=== PATIENT | male | born 1995 | race Caucasian/White ===

== ENCOUNTER 2016-08-27 20:49 | Emergency (ER) | payer OTHER ==
[2016-08-27] MEDS ORDERED: Aspirin Low Dose CHEW TAB* 81 MG PO ONE (23:20)
[2016-08-28 00:39] LABS: Hematocrit 46 % (42-52); Hemoglobin 15.5 g/dl (14.0-18.0); Mean Corpuscular HGB Conc 34 g/dl (31-36); Mean Corpuscular Hemoglobin 27 pg (27-31); Mean Corpuscular Volume 80 fL (80-94); Mean Platelet Volume 10 um3 (7.4-10.4); Red Blood Count 5.76 10^6/ul (4.0-5.4); Red Cell Distribution Width 14 % (10.5-15); White Blood Count 9.1 10^3/ul (3.5-10.8)
[2016-08-28 00:55] LABS: Albumin 4.8 g/dL (3.2-5.2); BUN/Creatinine Ratio 16.3 (8-20); EGFR African American 131.1 (>60); Total Bilirubin 0.4 mg/dL (0.2-1.0); Total Protein 7.8 g/dL (6.4-8.9)
[2016-08-28 00:58] LABS: Potassium 3.8 mmol/L (3.5-5.0)
--- NOTE | 2016-08-28 02:14 | ED ---
HPI Chest Pain - HPI Summary HPI Summary: Patient presents with 2 days of chest discomfort that has come and gone without exertion or rest. He denies nausea, sweating or lightheadedness with symptoms. His pain is a dull sensation that does not radiate. He denies SOB, RODRIGUEZ, throat pain or fevers. 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 His father had an MT in his 20's and is alive today. - History of Current Complaint Chief Complaint: EDChestPainROMI Time Seen by Provider: 08/27/16 23:20 Hx Obtained From: Patient, Family/Dental Hygienist Onset/Duration: Started Hours Ago Timing: Intermittent, Lasting Hours Initial Severity: Mild Current Severity: Mild Pain Intensity: 3 Chest Pain Location: Mid Sternal Chest Pain Radiates: No Character: Dull/Aching Aggravating Factor(s): Nothing Alleviating Factor(s): Nothing Associated Signs and Symptoms: Positive: Chest Pain - Risk Factors Pulmonary Embolism Risk Factors: Negative AMI/ACS Risk Factors: Obesity, Family History - Allergy/Home Medications Allergies/Adverse Reactions: Allergies Allergy/AdvReac Type Severity Reaction Status Date / Time No Known Allergies Allergy Verified 12/22/15 17:45 PMH/Surg Hx/FS Hx/Imm Hx Cardiovascular History: Reports: Hx Hypertension - Surgical History Surgery Procedure, Year, and Place: WISDOM TEETH Infectious Disease History: No Infectious Disease History: Denies: Traveled Outside the in Last 30 Days - Family History Known Family History: Positive: Cardiac Disease, Hypertension - Social History Occupation: Student Lives: With Family Alcohol Use: None Substance Use Type: Reports: None Smoking Status (MU): Never Smoked Tobacco Review of Systems Negative: Fever, Chills Negative: Dental Pain Positive: Chest Pain Negative: Shortness Of Breath Negative: Abdominal Pain, Nausea Negative: Headache All Other Systems Reviewed And Are Negative: Yes Physical Exam Triage Information Reviewed: Yes Vital Signs On Initial Exam: Initial Vitals Temp Pulse Resp BP Pulse Ox 97.1 F 93 20 169/91 100 08/27/16 20:51 08/27/16 20:51 08/27/16 20:51 08/27/16 20:51 08/27/16 20:51 Vital Signs Reviewed: Yes Appearance: Positive: Well-Appearing, No Pain Distress, Obese Skin: Positive: Warm, Skin Color Reflects Adequate Perfusion, Dry, Soft Head/Face: Positive: Normal Head/Face Inspection Eyes: Positive: EOMI, MALLORY, Conjunctiva Clear ENT: Positive: Hearing grossly normal, Pharynx normal Neck: Positive: Supple, Nontender, No Lymphadenopathy Respiratory/Lung Sounds: Positive: Clear to Auscultation, Breath Sounds Present Cardiovascular: Positive: RRR Abdomen Description: Positive: Nontender, Soft. Negative: CVA Tenderness (R), CVA Tenderness (L), Distended, Guarding Bowel Sounds: Positive: Present Musculoskeletal: Positive: Strength/ROM Intact. Negative: Edema Left, Edema Right Neurological: Positive: Sensory/Motor Intact, Alert, Oriented to Person Place, Time, NV Bundle Intact Distally Psychiatric: Positive: Affect/Mood Appropriate AVPU Assessment: Alert - [place] Coma Scale Coma Scale Total: 15 Diagnostics - Vital Signs Vital Signs Temp Pulse Resp BP Pulse Ox 08/27/16 21:58 97.5 F 77 20 154/96 99 08/27/16 20:56 97.1 F 93 20 169/91 100 08/27/16 20:51 97.1 F 93 20 169/91 100 - Laboratory Lab Results: Lab Results 08/27/16 08/27/16 08/27/16 Range/Units 00:20 00:20 00:20 WBC 9.1 (3.5-10.8) 10^3/ul RBC 5.76 H (4.0-5.4) 10^6/ul Hgb 15.5 (14.0-18.0) g/dl Hct 46 (42-52) % MCV 80 (80-94) fL MCH 27 (27-31) pg MCHC 34 (31-36) g/dl RDW 14 (10.5-15) % Plt Count 162 (150-450) 10^3/ul MPV 10 (7.4-10.4) um3 Neut % (Auto) 60.7 (38-83) % Lymph % (Auto) 30.8 (25-47) % [place] % (Auto) 6.7 (1-9) % Eos % (Auto) 0.7 (0-6) % Baso % (Auto) 1.1 (0-2) % Absolute Neuts (auto) 5.5 (1.5-7.7) 10^3/ul Absolute Lymphs (auto) 2.8 (1.0-4.8) 10^3/ul Absolute Monos (auto) 0.6 (0-0.8) 10^3/ul Absolute Eos (auto) 0.1 (0-0.6) 10^3/ul Absolute Basos (auto) 0.1 (0-0.2) 10^3/ul Absolute Nucleated RBC 0.01 10^3/ul Nucleated RBC % 0.1 Sodium 137 (133-145) mmol/L Potassium 3.8 (3.5-5.0) mmol/L Chloride 102 (101-111) mmol/L Carbon Dioxide 26 (22-32) mmol/L Anion Gap 9 (2-11) mmol/L BUN 15 (6-24) mg/dL Creatinine 0.92 (0.67-1.17) mg/dL Est GFR ( Amer) 131.1 (>60) Est GFR (Non-Af Amer) 102.0 (>60) BUN/Creatinine Ratio 16.3 (8-20) Glucose 86 (70-100) mg/dL Lactic Acid 1.0 (0.5-2.0) mmol/L Calcium 10.0 (8.6-10.3) mg/dL Magnesium 2.0 (1.9-2.7) mg/dL Total Bilirubin 0.40 (0.2-1.0) mg/dL AST 32 (13-39) U/L ALT 49 (7-52) U/L Alkaline Phosphatase 91 (34-104) U/L Troponin I 0.00 (<0.04) ng/mL Total Protein 7.8 (6.4-8.9) g/dL Albumin 4.8 (3.2-5.2) g/dL Globulin 3.0 (2-4) g/dL Albumin/Globulin Ratio 1.6 (1-3) Result Diagrams: 08/27/16 00:20 08/27/16 00:20 Lab Statement: Any lab studies that have been ordered have been reviewed, and results considered in the medical decision making process. - Radiology No standard instances Xray Interpretation: No Acute Changes Radiology Interpretation Completed By: Radiologist - EKG No standard instances Cardiac Rate: NL EKG Rhythm: Sinus Rhythm ST Segment: Normal Ectopy: None Re-Evaluation - Re-Evaluation First Eval Re-Evaluation Time: 03:35 Change: Improved Comment: Asymptomatic Chest Pain Course/Dx - Course Course Of Treatment: Patient's case was discussed with Dr. Lee. Patient will await second troponin before possible discharge. If negative, he will be discharged with instructions to follow-up with Jude, who is is PCP for evaluation in the next 48 hours. - Chest Pain Differential Diagnosis/HQI/PQRI: Acute MT, ACS, Angina, CHF, Chest Wall, Pulmonary Edema - Diagnoses Provider Diagnoses: Chest pain - Provider Notifications Discussed Care Of Patient With: Dr. Lee, ED attending. Patient care signed out to Dr. Lee at 0230. Discharge - Discharge Plan Condition: Stable Disposition: HOME Patient Education Materials: Chest Pain (ED) Referrals: JUDE Mera [Medical Doctor] - Eric Catalan MD [Medical Doctor] - 2 Days Additional Instructions: FOLLOW UP WITH CARDIOLOGY, DR. CATALAN, IN THE NEXT 2 DAYS.
[2016-08-28 03:58] VITALS: BP 163/95
--- NOTE | 2016-08-28 07:41 | RAD ---
HISTORY: Chest pain COMPARISONS: None VIEWS:1: Single frontal portable view of the chest at 11:45 PM FINDINGS: LINES AND TUBES: None. CARDIOMEDIASTINAL SILHOUETTE: The cardiomediastinal silhouette is normal for portable technique. PLEURA: The costophrenic angles are sharp. No pleural abnormalities are noted. LUNG PARENCHYMA: The lungs are clear. ABDOMEN: The upper abdomen is clear. There is no subphrenic gas. BONES AND SOFT TISSUES: No bone or soft tissue abnormalities are noted. IMPRESSION: NO ACTIVE CARDIOPULMONARY DISEASE.
--- NOTE | 2016-08-29 21:26 | ED ---
I, Johny Bartlett, scribed for Khanh Lee MD on 08/28/16 at 0336 . Progress - Progress Note Progress Note: Signed out by NISREEN Seymour, pending second troponin. Labs reviewed. Trop is 0.00. Re-Evaluation - Re-Evaluation First Eval Re-Evaluation Time: 03:35 Change: Improved Comment: Asymptomatic Course/Dx - Diagnoses Provider Diagnoses: Chest pain Discharge - Discharge Plan Condition: Stable Disposition: HOME Patient Education Materials: Chest Pain (ED) Referrals: [facility] LEENA Han [Medical Doctor] - Eric Catalan MD [Medical Doctor] - Additional Instructions: FOLLOW UP WITH CARDIOLOGY, DR. CATALAN. The documentation as recorded by the jaquelineibDhruv rodney Billy accurately reflects the service I personally performed and the decisions made by , Khanh Lee MD.
== END 2016-08-28 03:56 | disposition home or self-care (01) ==
LOC: ED 20:49
DX: R07.9 Chest pain, unspecified (principal)
CPT/HCPCS: 36415; 71010; 80053; 83605; 83735; 84484; 85025; 93005; 99283

== ENCOUNTER 2017-09-04 18:58 | Emergency (ER) | payer OTHER ==
[2017-09-04 19:12] VITALS: BP 162/88
--- NOTE | 2017-09-04 20:26 | UC ---
Cardiac HPI - HPI Summary HPI Summary: Patient presents complaining of chest pain that started several hours prior to arrival while he was cleaning his house. Upon further discussion patient states that it actually feels like it is more left side and back pain than it is chest pain. Pain is worse when he moves his upper body. He denies nausea, shortness of breath, sweats, dizziness. - History of Current Complaint Chief Complaint: UCChestPain Stated Complaint: CHEST AND BACK PAIN Time Seen by Provider: 09/04/17 19:02 Hx Obtained From: Patient, Family/Special Police - SERINA Onset/Duration: Sudden Onset, Lasting Hours, Still Present Timing: Constant Initial Severity: Moderate Current Severity: Moderate Pain Intensity: 8 Chest Pain Location: Left Lateral Character: Sharp/Stabbing Aggravating Factor(s): Movement Alleviating Factor(s): Rest Associated Signs & Symptoms: Positive: Chest Pain, Back Pain. Negative: Vision Changes, Weakness, Dizziness, SOB, Fever, Nausea/Vomiting, Palpitations - Allergy/Home Medications Allergies/Adverse Reactions: Allergies Allergy/AdvReac Type Severity Reaction Status Date / Time No Known Allergies Allergy Verified 09/04/17 19:13 PMH/Surg Hx/FS Hx/Imm Hx Cardiovascular History: Hypertension - Surgical History Surgical History: Yes Surgery Procedure, Year, and Place: WISDOM TEETH - Family History Known Family History: Positive: Cardiac Disease, Hypertension - Social History Alcohol Use: Occasionally Substance Use Type: None Smoking Status (MU): Never Smoked Tobacco Review of Systems Constitutional: Negative Eyes: Negative ENT: Negative Respiratory: Negative Cardiovascular: Chest Pain Gastrointestinal: Negative Musculoskeletal: Myalgia All Other Systems Reviewed And Are Negative: Yes Physical Exam Triage Information Reviewed: Yes Appearance: Well-Appearing, No Pain Distress, Well-Nourished Vital Signs: Initial Vital Signs Temp 98.2 F 09/04/17 19:05 Pulse 75 09/04/17 19:05 Resp 16 09/04/17 19:05 BP 162/88 09/04/17 19:05 Pulse Ox 97 09/04/17 19:05 Vital Signs Reviewed: Yes Eyes: Positive: Conjunctiva Clear ENT: Positive: Hearing grossly normal, Pharynx normal, TMs normal Neck: Positive: Supple, Nontender, No Lymphadenopathy Respiratory Exam: Normal Cardiovascular Exam: Normal Abdomen Description: Positive: Nontender, Soft. Negative: CVA Tenderness (R), CVA Tenderness (L), Distended, Guarding Musculoskeletal: Positive: No Edema Neurological: Positive: Alert Psychological: Positive: Normal Response To Family, Age Appropriate Behavior Skin: Negative: rashes Diagnostics - EKG Cardiac Rate: NL - 75 BPM Cardiac Rhythm: Sinus: Normal Ectopy: None ST Segment: Normal - Assessment/Plan Course Of Treatment: Given patient's family history of early cardiac disease offered transport to [place] [facility] [place]. Patient declines in favor of treating conservatively for muscle strain with NSAID and muscle relaxer. Advised to go to the ED without fail if his symptoms worsen. - Clinical Impression Provider Diagnoses: MUSCLE STRAIN Discharge - Sign-Out/Discharge Documenting (check all that apply): Discharge - Discharge Plan Condition: Stable Disposition: HOME Prescriptions: Cyclobenzaprine TAB* [Flexeril TAB*] 10 mg PO BID PRN #30 tab PRN Reason: Pain Naproxen [Naproxen EC] 500 mg PO BID PRN #30 tab PRN Reason: Pain Patient Education Materials: Muscle Strain (ED) Referrals: No Primary Care Phys,NOPCP [Primary Care Provider] - Additional Instructions: LOW SUSPICION FOR CARDIAC CAUSES OF YOUR SYMPTOMS. PRESENTATION MORE CONSISTENT WITH MUSCLE STRAIN. REST, STRETCH AND TAKE NAPROSYN AND FLEXERIL NEEDED. GO TO ER WITHOUT FAIL IF YOU DEVELOP WORSENING SHORTNESS OF BREATH, CHEST PAIN, NAUSEA, SWEATS, DIZZINESS OR ANY OTHER CONCERNING SYMPTOMS. BE SURE TO ESTABLISH WITH A PCP WHEN YOU MOVE IN 2 WEEKS. GIVEN YOUR FAMILY HISTORY I RECOMMEND YOU DISCUSS ROUTINE EVALUATION AND CARDIAC WORK-UP. - Billing Disposition and Condition Condition: STABLE Disposition: HOME
== END 2017-09-04 20:20 | disposition home or self-care (01) ==
LOC: UCEAST 18:58
DX: S29.011A Strain of muscle and tendon of front wall of thorax, initial encounter (principal); X50.9XXA Other and unspecified overexertion or strenuous movements or postures, initial encounter; Y93.E9 Activity, other interior property and clothing maintenance; Y92.009 Unspecified place in unspecified non-institutional (private) residence as the place of occurrence of the external cause; M54.9 Dorsalgia, unspecified; M79.1 Myalgia; I10 Essential (primary) hypertension
CPT/HCPCS: 93005; 99212; G0463

== ENCOUNTER 2017-09-08 16:27 | Emergency (ER) | payer OTHER ==
--- NOTE | 2017-09-08 18:04 | ED ---
Back Pain - HPI Summary HPI Summary: Please of sudden onset left upper back pain S/P standing up after cleaning house last Saturday, with mild SOB associated with pain. Patient went to urgent care saturday, diagnosed with muscle strain, given a prescription for Flexeril and naproxen. Patient states pain is improved but is still persistent. Pain intermittent, sharp, worse with movement, flexion and extension of back. Denies fever, cough, sore throat, CP, N/V/D, abdomen pain, change in urinary BM. Denies personal cardiac history, positive family cardiac history. Med history is none. - History of Current Complaint Chief Complaint: EDBackInjuryPain Stated Complaint: BACK PAIN Time Seen by Provider: 09/08/17 17:37 Hx Obtained From: Patient Onset/Duration: Sudden Onset Onset/Duration: Started Days Ago Timing: Intermittent Back Pain Location: Is Discrete @ Severity Initially: Moderate Severity Currently: Mild Pain Intensity: 4 Pain Scale Used: 0-10 Numeric Character: Sharp Aggravating Symptom(s): Movement Alleviating Symptom(s): Rest, Position, OTC Meds Associated Signs And Symptoms: Positive: Negative - Risk Factors AAA Risk Factors: Negative TAD Risk Factors: Negative Cauda [place] Risk Factors: Negative Epidural Abscess Risk Factors: Negative - Allergies/Home Medications Allergies/Adverse Reactions: Allergies Allergy/AdvReac Type Severity Reaction Status Date / Time No Known Allergies Allergy Verified 09/08/17 16:47 PMH/Surg Hx/FS Hx/Imm Hx Cardiovascular History: Reports: Hx Hypertension - Surgical History Surgery Procedure, Year, and Place: WISDOM TEETH Infectious Disease History: No Infectious Disease History: Denies: Traveled Outside the [place] in Last 30 Days - Family History Known Family History: Positive: Cardiac Disease, Hypertension - Social History Alcohol Use: Occasionally Substance Use Type: Reports: None Smoking Status (MU): Never Smoked Tobacco Review of Systems Constitutional: Negative Eyes: Negative ENT: Negative Cardiovascular: Negative Positive: Shortness Of Breath Gastrointestinal: Negative Genitourinary: Negative Musculoskeletal: Negative Skin: Negative Neurological: Negative Psychological: Normal All Other Systems Reviewed And Are Negative: Yes Physical Exam - Summary Physical Exam Summary: Patient nontender to palpation in paraspinal and upper back muscles. No increase in pain with movement of left shoulder or arm. No indication of trauma to left upper back. Triage Information Reviewed: Yes Vital Signs On Initial Exam: Initial Vitals Temp Pulse Resp BP Pulse Ox 98 F 104 16 178/99 98 09/08/17 16:47 09/08/17 16:47 09/08/17 16:47 09/08/17 16:47 09/08/17 16:47 Vital Signs Reviewed: Yes Appearance: Positive: Well-Appearing Skin: Positive: Warm Head/Face: Positive: Normal Head/Face Inspection Eyes: Positive: Normal Neck: Positive: Supple Respiratory/Lung Sounds: Positive: Clear to Auscultation Cardiovascular: Positive: Normal Abdomen Description: Positive: Nontender Musculoskeletal: Positive: Normal Neurological: Positive: Normal Psychiatric: Positive: Normal AVPU Assessment: Alert - [place] Coma Scale Best Eye Response: 4 - Spontaneous Best Motor Response: 6 - Obeys Commands Best Verbal Response: 5 - Oriented Coma Scale Total: 15 Diagnostics - Vital Signs Vital Signs Temp Pulse Resp BP Pulse Ox 09/08/17 16:47 98 F 104 16 178/99 98 - Laboratory Lab Statement: Any lab studies that have been ordered have been reviewed, and results considered in the medical decision making process. - Radiology chesdt xray Xray Interpretation: No Acute Changes Radiology Interpretation Completed By: Radiologist Back Pain Course/Dx - Diagnoses Provider Diagnoses: Costochondritis, acute Discharge - Sign-Out/Discharge Documenting (check all that apply): Discharge - Discharge Plan Condition: Stable Disposition: HOME Patient Education Materials: Costochondritis (ED) Referrals: No Primary Care Phys,NOPCP [Primary Care Provider] - - Billing Disposition and Condition Condition: STABLE Disposition: HOME
--- NOTE | 2017-09-08 19:16 | RAD ---
Indication: Back pain. 2 views of the chest including dual energy PA views demonstrate no mediastinal shift. Heart is of normal size and configuration. Lung jane appear clear. When compared to previous exam of August 27, 2016 no significant change is noted. IMPRESSION: No active cardiopulmonary disease is noted.
[2017-09-08 20:25] VITALS: BP 147/99
== END 2017-09-08 19:57 | disposition home or self-care (01) ==
LOC: ED 16:27
DX: M94.0 Chondrocostal junction syndrome [Tietze] (principal)
CPT/HCPCS: 71046; 99281